=== PATIENT | female | born 1970 | race Caucasian/White ===

== ENCOUNTER 2021-02-06 12:11 | Observation (INO) ==
[2021-02-06 12:27] VITALS: BMI 48.6
--- NOTE | 2021-02-06 12:29 | DR.NAUSEAF ---
HPI Time Seen Time Seen by Provider: 02/06/21 12:28 Primary Care Physician Primary Care Physician: Kathy Casas Complaints Chief Complaint:: Pt reports n/v/d, had 2 syncopal episodes today, started on Ozempic last night for DM. Pt is pale on arrival, skin cool to touch. Pt checked her FSBS at work before coming in and it was 153. COVID-19 Coronavirus risk:travel/contact w/high risk person: No Has patient experienced Coronavirus symptoms: No Source History Provided: Patient Timing Onset of Chief Complaint: 02/06/21 PMH PMH Past Medical History: Yes Past Medical History: Diabetes Past Surgical History: Yes Family History History of Family Medical Conditions: Yes Family Medical History: Diabetes Mellitus and Hypertension Social History Alcohol Use: None Do you use any recreational Drugs:: No Lives With: Spouse Lives Where: Home Travel Risk Coronavirus risk:travel/contact w/high risk person: No Has patient experienced Coronavirus symptoms: No Infectious screening In the last 2 months have you had wt loss of >10#?: NO Have you had fever, night sweats or hemotysis?: No Have you traveled outside the country in the last 6 months?: No Isolation: Standard PE Vital Signs Vitals: Temperature 97.9 F Pulse Rate 110 Respiratory Rate 23 Blood Pressure 172/78 O2 Sat by Pulse Oximetry 99 ROR Labs Reviewed Result Diagrams: 02/06/21 12:15 02/06/21 12:15 Laboratory: WBC 18.7 X10^3/uL (3.6-10.0) H 02/06/21 12:15 RBC 5.72 X10^6/uL (3.5-5.4) H 02/06/21 12:15 Hgb 15.0 g/dL (12.0-16.0) 02/06/21 12:15 Hct 46.8 % (36.0-47.0) 02/06/21 12:15 MCV 81.9 fL (80.0-100.0) 02/06/21 12:15 MCH 26.3 pg (27.0-34.0) L 02/06/21 12:15 MCHC 32.1 g/dL (33.0-35.0) L 02/06/21 12:15 RDW 16.5 % (11.6-16.5) 02/06/21 12:15 Plt Count 276 X10^3/uL (150.0-450.0) 02/06/21 12:15 Plt Count Comment Adequate (ADEQUATE) 02/06/21 12:15 MPV 11.0 fL (7.4-11.0) 02/06/21 12:15 Neut % (Auto) 92.3 % (42.0-75.0) H 02/06/21 12:15 Lymph % (Auto) 3.0 % (21.0-51.0) L 02/06/21 12:15 [place] % (Auto) 3.9 % (0.0-13.0) 02/06/21 12:15 Eos % (Auto) 0.3 % (0.9-2.9) L 02/06/21 12:15 Baso % (Auto) 0.5 % (0.2-1.0) 02/06/21 12:15 Neut # (Auto) 17.2 x10^3/uL (2.2-4.8) H 02/06/21 12:15 Lymph # (Auto) 0.6 X10^3/uL (1.3-2.9) L 02/06/21 12:15 [place] # (Auto) 0.7 x10^3/uL (0.3-0.8) 02/06/21 12:15 Eos # (Auto) 0.1 x10^3/uL (0.0-0.2) 02/06/21 12:15 Baso # (Auto) 0.1 X10^3/uL (0.0-0.1) 02/06/21 12:15 Absolute Nucleated RBC 0.1 /100WBC 02/06/21 12:15 Total Counted 100 02/06/21 12:15 Neutrophils % (Manual) 81 % (39-76) H 02/06/21 12:15 Band Neutrophils % 3 % (0-10) 02/06/21 12:15 Lymphocytes % (Manual) 9 % (13-43) L 02/06/21 12:15 Monocytes % (Manual) 7 % (4-9) 02/06/21 12:15 Plt Morphology Comment Normal (NORMAL) 02/06/21 12:15 RBC Morphology Abnormal (NORMAL) A 02/06/21 12:15 Hypochromasia Slight A 02/06/21 12:15 Sodium 142 mmol/L (136-145) 02/06/21 12:15 Corrected Sodium 145 mmol/L (136-145) 02/06/21 12:15 Potassium 4.0 mmol/L (3.5-5.1) 02/06/21 12:15 Chloride 105 mmol/L (98-107) 02/06/21 12:15 Carbon Dioxide 24.7 mmol/L (21-32) 02/06/21 12:15 BUN 17 mg/dL (7-18) 02/06/21 12:15 Creatinine 1.19 mg/dL (0.55-1.02) H 02/06/21 12:15 Est GFR (MDRD) Af Amer > 60 (>60) 02/06/21 12:15 Est GFR (MDRD) Non-Af 51 (>60) L 02/06/21 12:15 Glucose 207 mg/dL (65-99) H 02/06/21 12:15 POC Glucose (mg/dL) 218 mg/dL (65-99) H 02/06/21 12:32 Calcium 10.9 mg/dL (8.5-10.1) H 02/06/21 12:15 Corrected Calcium TNP 02/06/21 12:15 Total Bilirubin 0.50 mg/dL (0.2-1.0) 02/06/21 12:15 AST 45 Units/L (15-37) H 02/06/21 12:15 ALT 70 Units/L (12-78) 02/06/21 12:15 Alkaline Phosphatase 144 Units/L (46-116) H 02/06/21 12:15 Creatine Kinase 90 Units/L (26-192) 02/06/21 17:10 CK-MB (CK-2) 1.7 ng/mL (0-4.0) 02/06/21 17:10 CK/CKMB % Calc 1.9 % (<4) 02/06/21 17:10 Troponin I < 0.02 ng/mL (0-1.5) 02/06/21 17:10 Total Protein 8.4 g/dL (6.4-8.2) H 02/06/21 12:15 Albumin 4.1 g/dL (3.4-5.0) 02/06/21 12:15 Globulin 4.3 g/dL (2.5-4.5) 02/06/21 12:15 Albumin/Globulin Ratio 1.0 Ratio (1.1-2.1) L 02/06/21 12:15 Amylase 49 Units/L (25-115) 02/06/21 12:15 Lipase 115 Units/L (73-393) 02/06/21 12:15 Specimen Type Clean catch urine 02/06/21 16:01 Urine Color Dark yellow (YELLOW) 02/06/21 16:01 Urine Appearance Slightly hazy (CLEAR) 02/06/21 16:01 Urine pH 5.0 (5.0 - 8.0) 02/06/21 16:01 Ur Specific [place] 1.025 (1.000-1.030) 02/06/21 16:01 Urine Protein 3+ (NEGATIVE) 02/06/21 16:01 Urine Glucose (UA) Negative (NEGATIVE) 02/06/21 16:01 Urine Ketones Negative (NEGATIVE) 02/06/21 16:01 Urine Occult Blood 3+ (NEGATIVE) 02/06/21 16:01 Urine Nitrite Negative (NEGATIVE) 02/06/21 16:01 Urine Bilirubin Negative (NEGATIVE) 02/06/21 16:01 Urine Urobilinogen Normal (NORMAL) 02/06/21 16:01 Ur Leukocyte Esterase 2+ (NEGATIVE) 02/06/21 16:01 Urine RBC 3-5 /HPF (0-3) A 02/06/21 16:01 Urine WBC 5-10 /HPF (0-5) A 02/06/21 16:01 Ur Squamous Epith Cells Few /HPF (NEGATIVE) 02/06/21 16:01 Urine Bacteria 1+ /HPF (NEGATIVE) 02/06/21 16:01 Hyaline Casts Few /LPF (NEGATIVE) 02/06/21 16:01 Fine Granular Casts Moderate /LPF (NEGATIVE) 02/06/21 16:01 Ur Culture Indicated? Yes/culture set up 02/06/21 16:01 SARS CoV-2 RNA Rapid ALISSON Negative (NEGATIVE) 02/06/21 18:09 Opioid Opioid Risk Tool Age (Markus box if 16-45): No Total: 0 Total Score Risk Category: Low Risk Copyright: [employer] LR predicting aberrant behaviors Diagnosis Discharge Problem: Syncopal episodes, Abdominal pain, Acute dehydration, UTI (urinary tract infection), Nausea & vomiting, Diarrhea Instructions Forms: Precautions for COVID19 [facility] Patient Portal Social Distancing
[2021-02-06] MEDS ORDERED: DEMEROL INJ IVP ONE (12:46)
[2021-02-06] MEDS ORDERED: ZOFRAN INJ 4 MG VIAL IVP ONE ×2 (12:46→16:57)
[2021-02-06] MEDS ORDERED: NS 1,000 ML IV 1,000 ML IV ONE ×2 (12:46→16:58)
[2021-02-06] MEDS ORDERED: ZOFRAN INJ 4 MG VIAL ONE ×2 (12:57→17:44)
[2021-02-06] MEDS ORDERED: NS 1,000 ML IV 1,000 ML ONE ×2 (12:57→17:44)
[2021-02-06] MEDS ORDERED: DEMEROL INJ ONE (12:57)
[2021-02-06 13:00] LABS: BASOPHILS # (AUTO) 0.1 X10^3/uL (0.0-0.1); BASOPHILS % (AUTO) 0.5 % (0.2-1.0); EOSINOPHILS # (AUTO) 0.1 x10^3/uL (0.0-0.2); EOSINOPHILS % (AUTO) 0.3 % (0.9-2.9); HEMATOCRIT 46.8 % (36.0-47.0); LYMPHOCYTES # (AUTO) 0.6 X10^3/uL (1.3-2.9); MEAN CORPUSCULAR HEMOGLOBIN 26.3 pg (27.0-34.0); MEAN CORPUSCULAR HGB CONC 32.1 g/dL (33.0-35.0); MEAN CORPUSCULAR VOLUME 81.9 fL (80.0-100.0); MONOCYTES # (AUTO) 0.7 x10^3/uL (0.3-0.8); MONOCYTES % (AUTO) 3.9 % (0.0-13.0); NEUTROPHILS # (AUTO) 17.2 x10^3/uL (2.2-4.8); NEUTROPHILS % (AUTO) 92.3 % (42.0-75.0); PLATELET COUNT 276 X10^3/uL (150.0-450.0); RED BLOOD COUNT 5.72 X10^6/uL (3.5-5.4); RED CELL DISTRIBUTION WIDTH 16.5 % (11.6-16.5); WHITE BLOOD COUNT 18.7 X10^3/uL (3.6-10.0)
[2021-02-06 13:18] LABS: ALANINE AMINOTRANSFERASE 70 Units/L (12-78); ALBUMIN 4.1 g/dL (3.4-5.0); ALKALINE PHOSPHATASE 144 Units/L (46-116); AMYLASE 49 Units/L (25-115); ASPARTATE AMINO TRANSFERASE 45 Units/L (15-37); BLOOD UREA NITROGEN 17 mg/dL (7-18); CALCIUM 10.9 mg/dL (8.5-10.1); CARBON DIOXIDE 24.7 mmol/L (21-32); CHLORIDE 105 mmol/L (98-107); COR NA(FOR HYPERGLY) 145 mmol/L (136-145); CREATININE 1.19 mg/dL (0.55-1.02); LIPASE 115 Units/L (73-393); SODIUM 142 mmol/L (136-145); TOTAL PROTEIN 8.4 g/dL (6.4-8.2); eGFR NON BLACK RACES 51 (>60)
[2021-02-06 13:29] LABS: BAND NEUTROPHILS % 3 % (0-10); HYPOCHROMASIA SLIGHT; PLATELET MORPHOLOGY COMMENT NORMAL (NORMAL)
--- NOTE | 2021-02-06 13:37 | RAD ---
HISTORYABD PAIN, N/V, BEST VIEWS POSSIBLE, PT UNABLE TO STAND - DONE CROSSTABLE DECUBSTUDYACUTE ABDOMEN SERIESCOMPARISONNoneTECHNIQUEAcute abdominal series, 4 images. Patient unable to stand so cross-table decubitus images performed.FINDINGSThe cardiac and mediastinal contours are within normal limits. The lungs are clear without focal consolidation or segmental collapse. No pleural effusion or pneumothorax.Nonobstructive bowel gas pattern. No definite pneumatosis, free air or portal venous gas. No suspicious abdominal calcifications. Calcifications in the pelvis are likely phleboliths. Moderate leftward curvature of the lumbar spine.IMPRESSIONNonobstructive bowel gas pattern.Electronically signed by: Mark Rodriguez (Feb 06, 2021 13:36:11)
[2021-02-06] MEDS ORDERED: CATAPRES TAB 0.2 MG PO ONE (14:40)
[2021-02-06 16:10] LABS: BILIRUBIN,URINE NEGATIVE (NEGATIVE); BLOOD/HEMOGLOBIN,URINE 3+ (NEGATIVE); GLUCOSE, URINE NEGATIVE (NEGATIVE); KETONES,URINE NEGATIVE (NEGATIVE); LEUKOCYTE ESTERASE ,URINE 2+ (NEGATIVE); NITRITES,URINE NEGATIVE (NEGATIVE); PROTEIN,URINE 3+ (NEGATIVE); UROBILINOGEN,URINE NORMAL (NORMAL)
[2021-02-06 16:11] LABS: APPEARANCE,URINE SLIGHTLY HAZY (CLEAR); COLOR,URINE DARK YELLOW (YELLOW)
[2021-02-06 16:19] LABS: BACTERIA,URINE 1+ /HPF (NEGATIVE); SQUAMOUS EPITHELIAL CELL,UR FEW /HPF (NEGATIVE)
[2021-02-06 16:20] LABS: FINE GRANULAR CASTS,URINE MODERATE /LPF (NEGATIVE); HYALINE CASTS, URINE FEW /LPF (NEGATIVE)
--- NOTE | 2021-02-06 17:05 | CT ---
ABDOMEN/PELVIS W/O CONHistory: ABDOMINAL PAIN, VOMITTING, DIARRHEATechnique: CT images of the abdomen and pelvis were obtained without IV or oral contrast. Reformatted images in the coronal and sagittal planes also generated for review. Automatic exposure was utilized.Comparison: 01/22/2018Findings: Lung bases are clear. Scoliosis and degenerative changes throughout the spine noted.Please note that evaluation for soft tissue pathology is limited without IV contrast. Evaluation of the GI tract is also limited without oral contrast.Accounting for this, the unenhanced liver is enlarged and steatotic without gross focal lesion. The nondistended gallbladder, spleen, pancreas, adrenals and kidneys are unremarkable. There is no urolithiasis or obstructive uropathy.There is no bowel obstruction or gross inflammation. The appendix is normal. Abdominal aorta is normal in caliber. The collapsed urinary bladder is grossly unremarkable. Uterus and ovaries are present. There is no free air, significant free fluid or bulky lymphadenopathy.Impression:No acute abdominal pelvic abnormality identified within the limitations of a noncontrast exam.Hepatomegaly and hepatic steatosis.Electronically signed by: MABLE MUSE (Feb 06, 2021 17:02:45)
[2021-02-06] MEDS ORDERED: ROCEPHIN VIAL 1 GRAM 1 G in NS 100 ML IV + SPIKE MINIBAG* 100 ML IV ONE (17:31)
[2021-02-06] MEDS ORDERED: ROCEPHIN 1 GRAM IV PREMIX 1 G/50 ML IV.SOLN. IV ONE (17:45)
[2021-02-06 17:52] LABS: CKMB % 1.9 % (<4); CREATINE KINASE 90 Units/L (26-192); CREATINE KINASE MB 1.7 ng/mL (0-4.0); TROPONIN I < 0.02 ng/mL (0-1.5)
[2021-02-06] MEDS ORDERED: PHENERGAN INJ 25 MG IM ONE ×2 (19:22→19:23)
[2021-02-06] MEDS ORDERED: ZOFRAN INJ 4 MG VIAL IVP PRN ×2 (20:15→20:54)
[2021-02-06] MEDS ORDERED: PHENERGAN INJ 25 MG IM PRN (20:18)
[2021-02-06] MEDS ORDERED: PEPCID 20 MG IV PREMIX* 20 MG/50 ML BAG IV PRN (20:54)
[2021-02-06] MEDS: NS 1,000 ML IV 1,000 ML IV SCH ×2 (22:04→22:05)
[2021-02-06] MEDS: LOPRESSOR TAB 25 MG PO SCH (22:04)
[2021-02-06] MEDS: PROTONIX INJ 40 MG VIAL IVP SCH (22:05)
[2021-02-07 06:23] LABS: BASOPHILS % (AUTO) 0.2 % (0.2-1.0); EOSINOPHILS % (AUTO) 0.6 % (0.9-2.9); HEMATOCRIT 37.7 % (36.0-47.0); LYMPHOCYTES # (AUTO) 1.2 X10^3/uL (1.3-2.9); LYMPHOCYTES % (AUTO) 18.6 % (21.0-51.0); MEAN CORPUSCULAR HEMOGLOBIN 26.7 pg (27.0-34.0); MEAN CORPUSCULAR HGB CONC 32.7 g/dL (33.0-35.0); MEAN CORPUSCULAR VOLUME 81.6 fL (80.0-100.0); MONOCYTES # (AUTO) 0.7 x10^3/uL (0.3-0.8); MONOCYTES % (AUTO) 11.7 % (0.0-13.0); NEUTROPHILS # (AUTO) 4.4 x10^3/uL (2.2-4.8); NEUTROPHILS % (AUTO) 68.9 % (42.0-75.0); PLATELET COUNT 189 X10^3/uL (150.0-450.0); RED BLOOD COUNT 4.62 X10^6/uL (3.5-5.4); RED CELL DISTRIBUTION WIDTH 16.6 % (11.6-16.5)
[2021-02-07 06:26] LABS: HEMOGLOBIN 12.3 g/dL (12.0-16.0); WHITE BLOOD COUNT 6.3 X10^3/uL (3.6-10.0)
[2021-02-07 06:34] LABS: ALANINE AMINOTRANSFERASE 46 Units/L (12-78); ALKALINE PHOSPHATASE 83 Units/L (46-116); ASPARTATE AMINO TRANSFERASE 23 Units/L (15-37); BLOOD UREA NITROGEN 14 mg/dL (7-18); CALCIUM 9.1 mg/dL (8.5-10.1); CARBON DIOXIDE 24.8 mmol/L (21-32); CHLORIDE 113 mmol/L (98-107); COR CA(FOR HYPOALB) 9.9 mg/dL (8.5-10.1); COR NA(FOR HYPERGLY) 147 mmol/L (136-145); CREATININE 0.73 mg/dL (0.55-1.02); SODIUM 146 mmol/L (136-145); TOTAL PROTEIN 6.4 g/dL (6.4-8.2); eGFR NON BLACK RACES > 60 (>60)
[2021-02-07] MEDS ORDERED: NS 100 ML IV + SPIKE MINIBAG* 100 ML IV ONE (08:58)
[2021-02-07] MEDS: NS 1,000 ML IV 1,000 ML IV SCH ×4 (09:00→18:03)
[2021-02-07] MEDS: LOPRESSOR TAB 25 MG PO SCH ×2 (09:00→21:19)
[2021-02-07] MEDS: ROCEPHIN VIAL 1 GRAM 1 G in NS 100 ML IV + SPIKE MINIBAG* 100 ML IV SCH (09:00)
[2021-02-07] MEDS: PROTONIX INJ 40 MG VIAL IVP SCH ×2 (09:00→21:19)
[2021-02-07 11:26] LABS: CRYPTOSPORIDIUM PARVUM ANTIGEN NEGATIVE (NEGATIVE); GIARDIA LAMBLIA ANTIGEN NEGATIVE (NEGATIVE)
[2021-02-07] MEDS ORDERED: ZOFRAN TAB 4 MG PO PRN (18:42)
[2021-02-07] MEDS ORDERED: PATIENT'S HOME MEDICATION (Semaglutide [Ozempic] 0.25 mg or 0.5 mg(2 mg/1.5 mL) pen inject SUBCUT SCH (18:45)
--- NOTE | 2021-02-07 18:48 | DR.H&P ---
H&P - History & Physical for Day of: H&P Date: 02/06/21 - Chief Complaint Chief Complaint: Syncope, weakness - History of Present Illness History of Present Illness: Patient is a 50 year old white female who is being admitted due to leukocytosis, generalized weakness, dehydration. Patient reports generalized weakness and overall not feeling well for several days which have progressively gotten worse. Patient reports nausea without vomiting. Denies changes in bowel or bladder. Denies SOB, CP. PMH DM, HTN, tachycardia. WBC were elevated 18k. No other concerns at present. - Past Medical History Past Medical History: Diabetes, Hypertension - Past Surgical History Surgical History: WARP DYEING VAT [employer] Surgery - Family History Family Medical History: [place], Coronary Artery Disease, Hypertension - Social History Does patient currently use any type of tobacco product: No Have you used tobacco products in the last 12 months: No Type of Tobacco Use: None Alcohol Use: None Drug Use: None - Medications Home Medications: bacitracin [From Neosporin ([id number])] Allergy (Verified 02/06/21 12:18) neomycin [From Neosporin (bis-czq-[id number])] Allergy (Verified 02/06/21 12:18) polymyxin B [From Neosporin ([id number]-eie-jnqnn)] Allergy (Verified 02/06/21 12:18) CONTINUE taking the following medications duloxetine 60 mg PO DAILY 02/06/21 [History] gentamicin 1 drp OPHTHALMIC (EYE) DAILY 02/06/21 [History] levothyroxine [Synthroid] 150 mcg PO DAILY 02/06/21 [History] lisinopril 30 mg PO DAILY 02/06/21 [History] metoprolol succinate 25 mg PO BID 02/06/21 [History] ondansetron HCl 4 mg PO Q6HR PRN 02/06/21 [History] pantoprazole 40 mg PO DAILY 02/06/21 [History] semaglutide [Ozempic] 0.5 mg SUBCUT WEEKLY 02/06/21 [History] sucralfate 1 g PO TID 02/06/21 [History] - Review of Systems Constitutional: See HPI Eyes: See HPI ENT: See HPI Respiratory: See HPI Cardiovascular: See HPI Gastrointestinal: See HPI Genitourinary: See HPI Musculoskeletal: See HPI Skin: See HPI Neurological: See HPI - Physical Exam Vital Signs: Temperature 98.0 F Pulse Rate [Radial] 94 Pulse Rate 111 Respiratory Rate 20 Blood Pressure [Right Arm] 145/85 Blood Pressure 181/82 O2 Sat by Pulse Oximetry 95 Oriented: Normal, Time, Person, Place Eyes: Normal Ear: Normal Nose: Normal Throat: Normal Respiratory: Clear Throughout Cardiovascular: Normal : Normal Auscultation: Bowel Sounds: Normal Palpation: Normal Tenderness: LUQ, Mild Skin: Normal Musculoskeletal: Normal (generalized weakness) Psychiatric: Normal Mood Description: Calm Affect: Normal Speech Pattern: Clear, Appropriate - Assessment/Plan (1) Syncopal episodes Status: Acute Plan: Resolved; none witnessed while in the hospital (2) Abdominal pain Qualifiers: Abdominal location: left upper quadrant Qualified Code(s): R10.12 - Left upper quadrant pain Status: Acute Plan: CT abd pelvis. IV fluids. NPO. Repeat labs in am. See EMR for further orders. Verify home meds (3) Acute dehydration Status: Acute Plan: See above (4) UTI (urinary tract infection) Status: Acute Plan: IV abx. Cultures pending (5) Diarrhea Status: Acute Plan: Stool studies (6) Nausea Status: Acute Plan: Nausea control - Allergies Allergies/Adverse Reactions: Allergies Allergy/AdvReac Type Severity Reaction Status Date / Time bacitracin Allergy Verified 02/06/21 12:18 [From Neosporin ([id number]-vps-[id number])] neomycin Allergy Verified 02/06/21 12:18 [From Neosporin ([id number]-bvq-[id number])] polymyxin B Allergy Verified 02/06/21 12:18 [From Neosporin ([id number]-dyc-[id number])]
--- NOTE | 2021-02-07 18:55 | PCM.PROG ---
Progress Note - Subjective Subjective: Patient is a 50 year old white female who was admitted as per HPI in Hand [facility]. Patient reports she continues to feel weak. Patient does report abdominal pain has improved. States she has had only 1 BM today. Patient denies any vomiting. No other changes or concerns. WBC improved. - Past Medical Family Social History Past Med/Fam/Surg Hx: No changes since H&P Allergies: Allergies bacitracin [From Neosporin ([id number]-[id number]-[id number])] Allergy (Verified 02/06/21 12:18) neomycin [From Neosporin ([id number]-qts-[id number])] Allergy (Verified 02/06/21 12:18) polymyxin B [From Neosporin (eds-cto-fipwj)] Allergy (Verified 02/06/21 12:18) - Review of Systems ROS: No change since H&P - Vital Signs and I&O's Vital Signs: Temperature 98.0 F Pulse Rate [Radial] 94 Pulse Rate 111 Respiratory Rate 20 Blood Pressure [Right Arm] 145/85 Blood Pressure 181/82 O2 Sat by Pulse Oximetry 95 Intake and Output: Intake & Output 02/04/21 02/05/21 02/06/21 02/07/21 23:59 23:59 23:59 23:59 Intake Total 1553 / 1553 1568 / 1568 Balance 1553 / 1553 1568 / 1568 - Physical Exam Oriented: Normal, Time, Person, Place Eyes: Normal Ear: Normal Nose: Normal Throat: Normal Cardiovascular: Normal : Normal Auscultation: Bowel Sounds: Normal Tenderness: LUQ, Mild Skin: Normal Musculoskeletal: Normal (generalized weakness) Psychiatric: Normal Mood Description: Calm Affect: Normal Speech Pattern: Clear, Appropriate - Laboratory and Diagnostics Result Diagrams: 02/07/21 05:24 02/07/21 05:24 Labs: 02/07/21 09:05 Stool - Final 02/06/21 16:01 Urine,Clean Catch Urine Culture - Preliminary Laboratory WBC 6.3 X10^3/uL (3.6-10.0) D 02/07/21 05:24 RBC 4.62 X10^6/uL (3.5-5.4) 02/07/21 05:24 Hgb 12.3 g/dL (12.0-16.0) D 02/07/21 05:24 Hct 37.7 % (36.0-47.0) 02/07/21 05:24 MCV 81.6 fL (80.0-100.0) 02/07/21 05:24 MCH 26.7 pg (27.0-34.0) L 02/07/21 05:24 MCHC 32.7 g/dL (33.0-35.0) L 02/07/21 05:24 RDW 16.6 % (11.6-16.5) H 02/07/21 05:24 Plt Count 189 X10^3/uL (150.0-450.0) 02/07/21 05:24 Plt Count Comment Adequate (ADEQUATE) 02/06/21 12:15 MPV 11.0 fL (7.4-11.0) 02/07/21 05:24 Neut % (Auto) 68.9 % (42.0-75.0) 02/07/21 05:24 Lymph % (Auto) 18.6 % (21.0-51.0) L 02/07/21 05:24 [place] % (Auto) 11.7 % (0.0-13.0) 02/07/21 05:24 Eos % (Auto) 0.6 % (0.9-2.9) L 02/07/21 05:24 Baso % (Auto) 0.2 % (0.2-1.0) 02/07/21 05:24 Neut # (Auto) 4.4 x10^3/uL (2.2-4.8) 02/07/21 05:24 Lymph # (Auto) 1.2 X10^3/uL (1.3-2.9) L 02/07/21 05:24 [place] # (Auto) 0.7 x10^3/uL (0.3-0.8) 02/07/21 05:24 Eos # (Auto) 0.0 x10^3/uL (0.0-0.2) 02/07/21 05:24 Baso # (Auto) 0.0 X10^3/uL (0.0-0.1) 02/07/21 05:24 Absolute Nucleated RBC 0.0 /100WBC 02/07/21 05:24 Total Counted 100 02/06/21 12:15 Neutrophils % (Manual) 81 % (39-76) H 02/06/21 12:15 Band Neutrophils % 3 % (0-10) 02/06/21 12:15 Lymphocytes % (Manual) 9 % (13-43) L 02/06/21 12:15 Monocytes % (Manual) 7 % (4-9) 02/06/21 12:15 Plt Morphology Comment Normal (NORMAL) 02/06/21 12:15 RBC Morphology Abnormal (NORMAL) A 02/06/21 12:15 Hypochromasia Slight A 02/06/21 12:15 Sodium 146 mmol/L (136-145) H 02/07/21 05:24 Corrected Sodium 147 mmol/L (136-145) H 02/07/21 05:24 Potassium 4.1 mmol/L (3.5-5.1) 02/07/21 05:24 Chloride 113 mmol/L (98-107) H 02/07/21 05:24 Carbon Dioxide 24.8 mmol/L (21-32) 02/07/21 05:24 BUN 14 mg/dL (7-18) 02/07/21 05:24 Creatinine 0.73 mg/dL (0.55-1.02) 02/07/21 05:24 Est GFR (MDRD) Af Amer > 60 (>60) 02/07/21 05:24 Est GFR (MDRD) Non-Af > 60 (>60) 02/07/21 05:24 Glucose 142 mg/dL (65-99) H 02/07/21 05:24 POC Glucose (mg/dL) 102 mg/dL (65-99) H 02/07/21 17:20 Calcium 9.1 mg/dL (8.5-10.1) 02/07/21 05:24 Corrected Calcium 9.9 mg/dL (8.5-10.1) 02/07/21 05:24 Total Bilirubin 0.40 mg/dL (0.2-1.0) 02/07/21 05:24 AST 23 Units/L (15-37) 02/07/21 05:24 ALT 46 Units/L (12-78) 02/07/21 05:24 Alkaline Phosphatase 83 Units/L (46-116) 02/07/21 05:24 Creatine Kinase 90 Units/L (26-192) 02/06/21 17:10 CK-MB (CK-2) 1.7 ng/mL (0-4.0) 02/06/21 17:10 CK/CKMB % Calc 1.9 % (<4) 02/06/21 17:10 Troponin I < 0.02 ng/mL (0-1.5) 02/06/21 17:10 Total Protein 6.4 g/dL (6.4-8.2) 02/07/21 05:24 Albumin 3.0 g/dL (3.4-5.0) L 02/07/21 05:24 Globulin 3.4 g/dL (2.5-4.5) 02/07/21 05:24 Albumin/Globulin Ratio 0.9 Ratio (1.1-2.1) L 02/07/21 05:24 Amylase 49 Units/L (25-115) 02/06/21 12:15 Lipase 115 Units/L (73-393) 02/06/21 12:15 Specimen Type Clean catch urine 02/06/21 16:01 Urine Color Dark yellow (YELLOW) 02/06/21 16:01 Urine Appearance Slightly hazy (CLEAR) 02/06/21 16:01 Urine pH 5.0 (5.0 - 8.0) 02/06/21 16:01 Ur Specific [place] 1.025 (1.000-1.030) 02/06/21 16:01 Urine Protein 3+ (NEGATIVE) 02/06/21 16:01 Urine Glucose (UA) Negative (NEGATIVE) 02/06/21 16:01 Urine Ketones Negative (NEGATIVE) 02/06/21 16:01 Urine Occult Blood 3+ (NEGATIVE) 02/06/21 16:01 Urine Nitrite Negative (NEGATIVE) 02/06/21 16:01 Urine Bilirubin Negative (NEGATIVE) 02/06/21 16:01 Urine Urobilinogen Normal (NORMAL) 02/06/21 16:01 Ur Leukocyte Esterase 2+ (NEGATIVE) 02/06/21 16:01 Urine RBC 3-5 /HPF (0-3) A 02/06/21 16:01 Urine WBC 5-10 /HPF (0-5) A 02/06/21 16:01 Ur Squamous Epith Cells Few /HPF (NEGATIVE) 02/06/21 16:01 Urine Bacteria 1+ /HPF (NEGATIVE) 02/06/21 16:01 Hyaline Casts Few /LPF (NEGATIVE) 02/06/21 16:01 Fine Granular Casts Moderate /LPF (NEGATIVE) 02/06/21 16:01 Ur Culture Indicated? Yes/culture set up 02/06/21 16:01 Stool Description 7oz brown liquid 02/07/21 09:05 Stool Description 7oz brown liquid 02/07/21 09:05 Stl Occult Blood (IFOB) Positive (NEGATIVE) A 02/07/21 09:05 Stl C. diff Tox B Gene Negative (NEGATIVE) 02/07/21 09:05 Stl C. diff [id number] Presumptive negative (NEGATIVE) 02/07/21 09:05 Cryptosporid parvum Ag Negative (NEGATIVE) 02/07/21 09:05 Giardia lamblia Ag Negative (NEGATIVE) 02/07/21 09:05 SARS CoV-2 RNA Rapid [place] Negative (NEGATIVE) 02/06/21 18:09 - Plan (1) Syncopal episodes Status: Acute Plan: Resolved; none witnessed while in the hospital (2) Abdominal pain Status: Acute Qualifiers: Abdominal location: left upper quadrant Qualified Code(s): R10.12 - Left upper quadrant pain Plan: CT abd pelvis. IV fluids. NPO. Repeat labs in am. See EMR for further orders. Verify home meds (3) Acute dehydration Status: Acute Plan: See above (4) UTI (urinary tract infection) Status: Acute Plan: IV abx. Cultures pending (5) Diarrhea Status: Acute Plan: Stool studies (6) Nausea Status: Acute Plan: Nausea control. Start clear liquids. Decrease IV fluids to 50cc/hr (7) Leukocytosis Status: Acute Plan: cultures pending. IV abx (8) Obesity Status: Acute
[2021-02-07] MEDS ORDERED: PHARMACY CONSULT - VANCOMYCIN XX SCH (20:00)
[2021-02-07] MEDS ORDERED: VANCOMYCIN HCL 500 MG, VANCOMYCIN HCL 1 G in D5W 250 ML IV 250 ML IV SCH (21:00)
[2021-02-07] MEDS: TOPROL XL PO SCH (21:19)
[2021-02-07] MEDS: CARAFATE PO SCH (21:25)
[2021-02-08] MEDS: CARAFATE PO SCH ×2 (05:20→14:21)
[2021-02-08 06:26] LABS: ALANINE AMINOTRANSFERASE 48 Units/L (12-78); ALBUMIN 2.8 g/dL (3.4-5.0); ALKALINE PHOSPHATASE 72 Units/L (46-116); AMYLASE 23 Units/L (25-115); ASPARTATE AMINO TRANSFERASE 36 Units/L (15-37); BLOOD UREA NITROGEN 8 mg/dL (7-18); CALCIUM 9.4 mg/dL (8.5-10.1); CARBON DIOXIDE 26.6 mmol/L (21-32); CHLORIDE 111 mmol/L (98-107); COR CA(FOR HYPOALB) 10.4 mg/dL (8.5-10.1); COR NA(FOR HYPERGLY) 146 mmol/L (136-145); CREATININE 0.71 mg/dL (0.55-1.02); LIPASE 65 Units/L (73-393); SODIUM 145 mmol/L (136-145); TOTAL PROTEIN 5.9 g/dL (6.4-8.2); eGFR NON BLACK RACES > 60 (>60)
[2021-02-08 06:28] LABS: BASOPHILS % (AUTO) 0.4 % (0.2-1.0); EOSINOPHILS # (AUTO) 0.2 x10^3/uL (0.0-0.2); HEMATOCRIT 34.4 % (36.0-47.0); HEMOGLOBIN 11.2 g/dL (12.0-16.0); LYMPHOCYTES # (AUTO) 1.5 X10^3/uL (1.3-2.9); LYMPHOCYTES % (AUTO) 30.7 % (21.0-51.0); MEAN CORPUSCULAR HEMOGLOBIN 26.5 pg (27.0-34.0); MEAN CORPUSCULAR HGB CONC 32.5 g/dL (33.0-35.0); MEAN CORPUSCULAR VOLUME 81.7 fL (80.0-100.0); MEAN PLATELET VOLUME 10.2 fL (7.4-11.0); MONOCYTES # (AUTO) 0.5 x10^3/uL (0.3-0.8); MONOCYTES % (AUTO) 10.2 % (0.0-13.0); NEUTROPHILS # (AUTO) 2.8 x10^3/uL (2.2-4.8); NEUTROPHILS % (AUTO) 54.7 % (42.0-75.0); PLATELET COUNT 145 X10^3/uL (150.0-450.0); RED BLOOD COUNT 4.21 X10^6/uL (3.5-5.4); RED CELL DISTRIBUTION WIDTH 16.4 % (11.6-16.5)
[2021-02-08] MEDS ORDERED: ZESTRIL TAB 10 MG PO SCH (09:00)
[2021-02-08] MEDS ORDERED: SYNTHROID 150 mcg TAB PO SCH (09:00)
[2021-02-08] MEDS ORDERED: CYMBALTA PO SCH (09:00)
[2021-02-08] MEDS ORDERED: PROTONIX TAB 40 MG PO SCH (09:00)
[2021-02-08] MEDS: PROTONIX INJ 40 MG VIAL IVP SCH (09:46)
[2021-02-08] MEDS: ROCEPHIN VIAL 1 GRAM 1 G in NS 100 ML IV + SPIKE MINIBAG* 100 ML IV SCH (09:46)
[2021-02-08] MEDS: TOPROL XL PO SCH (09:46)
[2021-02-08] MEDS: NS 1,000 ML IV 1,000 ML IV SCH (09:47)
[2021-02-08] MEDS: LOPRESSOR TAB 25 MG PO SCH (10:07)
[2021-02-08] MEDS ORDERED: ZOFRAN TAB 4 MG PO PRN (11:00)
[2021-02-08 16:20] VITALS: BP 123/61
== END 2021-02-08 18:10 | disposition home or self-care (01) ==
LOC: MED/SURG 12:11 → ER 12:11 → MED/SURG 19:46
PROVIDERS: ADMIT Internal Medicine; ATTEND Internal Medicine
DX: R11.2 Nausea with vomiting, unspecified; R19.7 Diarrhea, unspecified; E86.0 Dehydration; B96.29 Other Escherichia coli [E. coli] as the cause of diseases classified elsewhere; R10.84 Generalized abdominal pain; E66.09 Other obesity due to excess calories; Z20.822 Contact with and (suspected) exposure to COVID-19; R55 Syncope and collapse; N39.0 Urinary tract infection, site not specified